=== PATIENT | female | born 1980 | race Caucasian/White ===

== ENCOUNTER 2017-08-12 15:21 | Emergency (ER) | payer OTHER ==
[~2017-08-12] VITALS: Ht 162.6 cm; Wt 122.5 kg
[2017-08-12] MEDS ORDERED: CLONIDINE HCL0.2 M2 PO (15:36)
[2017-08-12] MEDS ORDERED: ASPIR 8181 MG PO (15:36)
[2017-08-12] MEDS ORDERED: ZANTAC 150MG T150 MG PO (15:36)
[2017-08-12] MEDS ORDERED: IRON325 PO (15:37)
[2017-08-12] MEDS ORDERED: HUMULIN N100 UNIT/1 SUBQ (15:37)
[2017-08-12] MEDS ORDERED: HUMULIN N100 UNIT/3 SUBQ (15:38)
[2017-08-12] MEDS ORDERED: NOVOLOG100 UNIT/1 SUBQ (15:38)
[2017-08-12] MEDS ORDERED: AMOXICILLIN 50500 MG PO (15:38)
[2017-08-12] MEDS ORDERED: AUGMENTIN 875-1 EACH PO (15:49)
[2017-08-12 16:12] VITALS: BP 145/77
== END 2017-08-12 16:13 | disposition home or self-care (01) ==
LOC: M.ERS 15:21
DX: O26.893 Other specified pregnancy related conditions, third trimester (principal); H66.91 Otitis media, unspecified, right ear; I10 Essential (primary) hypertension; L40.50 Arthropathic psoriasis, unspecified; Z3A.32 32 weeks gestation of pregnancy; Z88.8 Allergy status to other drugs, medicaments and biological substances

== ENCOUNTER 2018-06-18 15:44 | Emergency (ER) | payer BC ==
[~2018-06-18] VITALS: Ht 162.6 cm; Wt 106.0 kg
[~2018-06-18 15:44] MED LIST: AMOXICILLIN 50500 MG PO; ASPIR 8181 MG PO; AUGMENTIN 875-1 EACH PO; CLONIDINE HCL0.2 M2 PO; HUMULIN N100 UNIT/1 SUBQ; HUMULIN N100 UNIT/3 SUBQ; IRON325 PO; NOVOLOG100 UNIT/1 SUBQ; ZANTAC 150MG T150 MG PO
[2018-06-18] MEDS ORDERED: DIOVAN40 MG PO (15:58)
[2018-06-18] MEDS ORDERED: METFORMIN HCL500 MG PO (15:59)
[2018-06-18] MEDS ORDERED: SERTRALINE HCL50 MG PO (15:59)
[2018-06-18] MEDS ORDERED: ACETAMINOPHEN-1 EAC1 PO (16:42)
[2018-06-18] MEDS ORDERED: ROBAXIN 750 MG750 M1 PO (16:42)
[2018-06-18 16:57] VITALS: BP 149/86
== END 2018-06-18 16:59 | disposition home or self-care (01) ==
LOC: M.ERS 15:44
DX: S46.811A Strain of other muscles, fascia and tendons at shoulder and upper arm level, right arm, initial encounter (principal); I10 Essential (primary) hypertension; M54.2 Cervicalgia; M54.6 Pain in thoracic spine; M19.90 Unspecified osteoarthritis, unspecified site; Z88.8 Allergy status to other drugs, medicaments and biological substances; X58.XXXA Exposure to other specified factors, initial encounter; Y93.89 Activity, other specified; Y92.89 Other specified places as the place of occurrence of the external cause; Y99.8 Other external cause status

== ENCOUNTER 2018-10-06 05:27 | Emergency (ER) | payer BC ==
[~2018-10-06] VITALS: Ht 162.6 cm; Wt 111.1 kg
[~2018-10-06 05:27] MED LIST changes: +ACETAMINOPHEN-1 EAC1 PO; +DIOVAN40 MG PO; +METFORMIN HCL500 MG PO; +ROBAXIN 750 MG750 M1 PO; +SERTRALINE HCL50 MG PO
[2018-10-06] MEDS ORDERED: HYDROCHLOROTHIA25 M2 PO (05:41)
[2018-10-06] MEDS ORDERED: METFORMIN HCL500 MG PO (05:43)
[2018-10-06] MEDS ORDERED: REGLAN 10 MG TA10 MG PO (06:24)
[2018-10-06] MEDS ORDERED: HYDROCHLOROTHIA25 M1 PO (06:24)
[2018-10-06] MEDS ORDERED: DIOVAN40 MG PO (06:24)
[2018-10-06 06:35] VITALS: BP 127/75
== END 2018-10-06 06:30 | disposition home or self-care (01) ==
LOC: M.ERS 05:27
DX: R51 Headache (principal); I10 Essential (primary) hypertension; Z88.8 Allergy status to other drugs, medicaments and biological substances

== ENCOUNTER 2018-11-18 19:15 | Emergency (ER) | payer BC ==
[~2018-11-18] VITALS: Ht 162.6 cm; Wt 108.9 kg
[~2018-11-18 19:15] MED LIST changes: +HYDROCHLOROTHIA25 M1 PO; +HYDROCHLOROTHIA25 M2 PO; +REGLAN 10 MG TA10 MG PO
[2018-11-18] MEDS ORDERED: ZOFRAN ODT4 MG PO (20:19)
[2018-11-18] MEDS ORDERED: IBUPROFEN 800800 M1 PO (20:19)
[2018-11-18] MEDS ORDERED: ZANAFLEX4 MG PO (20:19)
[2018-11-18 20:40] VITALS: BP 168/75
== END 2018-11-18 20:41 | disposition home or self-care (01) ==
LOC: M.ERS 19:15
DX: S16.1XXA Strain of muscle, fascia and tendon at neck level, initial encounter (principal); S39.012A Strain of muscle, fascia and tendon of lower back, initial encounter; S40.022A Contusion of left upper arm, initial encounter; S80.01XA Contusion of right knee, initial encounter; I10 Essential (primary) hypertension; Z88.8 Allergy status to other drugs, medicaments and biological substances; V89.2XXA Person injured in unspecified motor-vehicle accident, traffic, initial encounter; Y92.89 Other specified places as the place of occurrence of the external cause; Y93.89 Activity, other specified; Y99.8 Other external cause status

== ENCOUNTER 2019-06-08 02:39 | Emergency (ER) | payer OTHER ==
[~2019-06-08] VITALS: Ht 162.6 cm; Wt 113.4 kg
[~2019-06-08 02:39] MED LIST changes: +IBUPROFEN 800800 M1 PO; +ZANAFLEX4 MG PO; +ZOFRAN ODT4 MG PO
[2019-06-08 03:15] LABS: HEMATOCRIT 37.7 % (37.0-47.0); HEMOGLOBIN 12.2 gm/dL (12.0-15.0); MCHC 32.4 g/dL (28.0-37.0); MPV 8.2 fl. (7.2-11.1); NUCLEATED RBCS 0 /100WBC; PLATELET COUNT* 356 thou/uL (150-400); RBC 5.31 mil/uL (4.20-5.00); RDW-CV 16.4 % (10.5-14.5); WBC 11.3 thou/uL (4.0-11.0)
[2019-06-08 03:41] LABS: CALCIUM 8.1 mg/dL (8.5-10.1); CREATININE 0.7 mg/dL (0.6-1.3); POTASSIUM 3.9 mmol/L (3.5-5.1)
[2019-06-08 03:45] LABS: ALBUMIN 3.4 g/dL (3.4-5.0); TOTAL BILIRUBIN 0.3 mg/dL (<0.1-1.0); TOTAL PROTEIN 7.9 g/dL (6.4-8.2)
[2019-06-08] MEDS ORDERED: REGLAN 10 MG TA10 MG PO (04:07)
[2019-06-08 05:08] LABS: URINE BILIRUBIN NEGATIVE (Negative); URINE BLOOD 2+ (Negative); URINE CLARITY CLEAR; URINE COLOR YELLOW; URINE GLUCOSE-RANDOM NEGATIVE (Negative); URINE KETONES NEGATIVE (Negative); URINE LEUKOCYTES-REFLEX NEGATIVE (Negative); URINE NITRITE-REFLEX NEGATIVE (Negative); URINE PROTEIN 2+ (Negative); URINE SPECIFIC GRAVITY 1.025 (1.005-1.030); URINE UROBILINOGEN 0.2 E.U./dl (0.2-1.0)
[2019-06-08 05:15] LABS: ABSOLUTE EOSINOPHILS 0.1 thou/uL (0.0-0.7); ABSOLUTE LYMPHOCYTES 0.3 thou/uL (0.8-5.3); ABSOLUTE MONOCYTES 0.8 thou/uL (0.0-1.2); ABSOLUTE NEUTROPHILS 10.1 thou/uL (1.6-8.1); ANISOCYTOSIS Occasional; PLATELET ESTIMATE INCREASED; TOXIC GRANULATION 2+
[2019-06-08 05:16] LABS: LARGE PLATELETS OCCASIONAL
[2019-06-08 05:20] LABS: CASTS None Seen /LPF (None Seen); CRYSTALS None Seen /LPF (None Seen); MUCUS 4-6 Moderate strn/LPF (None Seen); SQUAMOUS 0-3 Few /LPF (0-3); TRANSITIONAL EPITHEL CELL 0-3 Few /LPF (None Seen); URINE WBC-REFLEX 6-15 Few /HPF (0-5)
[2019-06-08] MEDS ORDERED: MACROBID 100 M100 M1 PO (05:26)
[2019-06-08 05:57] VITALS: BP 122/62
== END 2019-06-08 05:58 | disposition home or self-care (01) ==
LOC: M.ERS 02:39
PROVIDERS: Emergency Medicine
DX: N39.0 Urinary tract infection, site not specified (principal); R11.2 Nausea with vomiting, unspecified; R19.7 Diarrhea, unspecified; I10 Essential (primary) hypertension; F32.9 Major depressive disorder, single episode, unspecified; Z88.8 Allergy status to other drugs, medicaments and biological substances